=== PATIENT | female | born 1965 | race Hispanic/Latino ===

== ENCOUNTER 2016-12-05 16:15 | Observation (INO) | payer OTHER ==
[~2016-12-05] VITALS: Ht 157.5 cm; Wt 106.9 kg
[~2016-12-05 16:15] MED LIST: TOPI25TA26 PO
[2016-12-05 16:20] VITALS: BP 139/88; PULSE 71; RESP 16; O2SAT 97
--- NOTE | 2016-12-05 18:11 | ED.REPORT ---
HPI-Neurologic Deficit Date of Service Dec 05, 2016 ED Provider: Reinier Johnson DO Pt is a 51 y.o. Indonesian-speaking female who presents to the ED c/o gradually improving right arm numbness onset 1100. Pt states that she woke up today and her right arm and hand felt numb and tinging. She states that as the day has progressed the numbness has slowly improved and is now more localized to her forearm. She also reports associated weakness in her right hand. She denies neck or arm pain, headache, change in vision, or change in speech. She denies similar sx previously, she also denies a hx of CVA. Nursing Notes Stated Complaint: NUMBNESS OF RIGHT ARM Chief Complaint: Neuro Symptoms/ Deficits Nursing Notes Reviewed: Yes Allergies: Coded Allergies: No Known Drug Allergies (Verified Allergy, Unknown, 12/05/16) Scheduled Atorvastatin (Lipitor) 20 Mg Tablet 20 MG PO HS Metformin (Metformin) 500 Mg Tablet 500 MG PO BID Scheduled PRN Topiramate (Topamax) 25 Mg Tablet 25 MG PO BID PRN PRN Headache General Time Seen by Provider: 18:11 Chief Complaint Numbness arm... (Right) Hx Obtained From: Patient Arrived By: Walk-in Sudden in Onset?: Yes Onset Occurred: 5 - 8 hours ago Context of Onset: During sleep Symptom Duration: Since onset Progression Since Onset: Gradually improving Severity: Current: No pain currently Associated with: Reports: Altered sensation, Denies: Headache, Neck pain, Visual disturbance Recent Healthcare: No recent doctor visit, No recent hospitalization Similar Sx Previous: No Past Medical History Past Medical History None Past Surgical History Reports: , Cholecystectomy, Hysterectomy, Inguinal hernia repair Smoking History Never Smoker Social History Alcohol Use: Denies alcohol use Drug Use: Denies drug use Ambulatory Status Independent Review of Systems Musculoskeletal: Denies: Extremity pain, Neck pain Neurologic: Reports: Focal weakness (Right hand), Numbness (Right arm), Denies: Headache, Slurred speech, Vision change Complete sys rev & neg: except as marked. Physical Exam Initial Vital Signs Vital Signs (First) Date Time Temp Pulse Resp B/P Pulse Ox O2 Delivery O2 Flow Rate FiO2 12/05/16 16:20 36.5 71 16 139/88 97 Room Air Initial VS: Reviewed Abdomen / GI: No distention Extremities: Vascular intact, Neuro intact Skin: Warm, Dry, No cyanosis Psychiatric: Mood/affect normal, Behavior normal, Normal thought content General/Constitutional: Awake, Alert, No acute distress, Well appearing, Well developed, Well hydrated, Well nourished, Not toxic appearing Appearance / Presentation: Positive: Obese Head / Eyes: Atraumatic, Normocephalic, PERRL, EOMI Respiratory / Chest: Atraumatic, Breath sounds NL, No respiratory distress Cardiovascular: Heart rate NL, Regular rhythm, Cap refill not delayed, Peripheral circulation NL Neurologic: Oriented X3, Speech NL 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2% (40-74) Lymphocytes (%) (Auto) 41.1% (14-46) Monocytes (%) (Auto) 5.9% (4-12) Eosinophils (%) (Auto) 3.3% (0-5) Basophils (%) (Auto) 0.5% (0-3) Prothrombin Time 11.1sec (8.1-12.5) Prothromb Time International Ratio 1.04ratio Sodium Level 139mEq/L (134-144) Potassium Level 4.1mEq/L (3.5-5.2) Chloride Level 102mEq/L (97-108) Carbon Dioxide Level 27mmol/L (18-29) Blood Urea Nitrogen 14mg/dL (6-24) Creatinine 0.43mg/dL (0.57-1.00) Estimat Glomerular Filtration Rate 223mL/min (>59) Glucose Level 100mg/dL (60-99) Calcium Level 9.0mg/dL (8.5-10.1) Total Bilirubin 0.4mg/dL (0.0-1.2) Aspartate Amino Transf (AST/SGOT) 17U/L (0-50) Alanine Aminotransferase (ALT/SGPT) 14U/L (0-32) Alkaline Phosphatase 131U/L (25-150) Total Protein 6.8g/dL (6.4-8.4) Albumin 4.0g/dL (3.4-5.0) CT Head Interpretation IMPRESSION: No abnormality is found intracranially. Cause of right arm numbness and weakness is not identified. Dictated by: Parker Hay M.D. on 12/05/2016 at 19:32 Approved by: Parker Hay M.D. on 12/05/2016 at 19:35 Re-Eval/Medical Decision Source of Hx: Old records Re-Evaluation/Progress : Time of Eval: 18:28 Re-Evaluation/Progress Note: Discussed with pt need for labs and plan to admit for observation, pt understands and agrees with plan. Consultation : Referral / Consult Name: Sb Umaña MD Consulted With: Hospitalist Call Returned at: 19:50 Display Carver: Accepts admit Note: Discussed pt confition, accepts admit. Counseled Regarding: Diagnosis, Lab results, Need for follow-up, Need for admission Discharge & Departure Impression: Primary Impression: Arm paresthesia, right Additional Impression: Weakness of right arm Disposition: ADMITTED TO HOSPITAL Discharge Condition All VS Reviewed: Yes Condition: Stable Referrals: Pranay Cagle MD (PCP) Antelmo Attestation Portions of this note were transcribed by Ibis Sherwood. I, Dr. Johnson personally performed the history, physical exam and medical decision-making; I reviewed and confirmed the accuracy of the information in the transcribed note. Signed by : Antelmo Stringer, 12/05/16 and 4036. copies to: Pranay Cagle MD, Todd P DO Dec 05, 2016 18:11 IBIS SHERWOOD Dec 05, 2016 18:37
[2016-12-05 19:01] LABS: BASOPHILS % (AUTO) 0.5 % (0-3); EOSINOPHILS % (AUTO) 3.3 % (0-5); MONOCYTES % (AUTO) 5.9 % (4-12); Mean Corpuscular Volume 87.9 fL (81-100); NEUTROPHILS % (AUTO) 49.2 % (40-74); Platelet Count 195 bil/L (150-400)
[2016-12-05 19:09] LABS: INR 1.04 ratio
--- NOTE | 2016-12-05 19:36 | DRSVH ---
PROCEDURE: CT BRAIN WITHOUT CONTRAST ([id number]) INDICATIONS: right arm numb and weak TECHNIQUE: Noncontrast 4.5 mm thick angled axial sections acquired from the foramen magnum to the vertex, with c oronal reformats. COMPARISON: [facility], CT, BRAIN W/O CONTRAST, 02/22/2015, 10:08. FINDINGS: Image quality: Good CSF spaces: Basal cisterns are patent. No extra-axial fluid collections. Ventricles are normal in size and shape. Brain: No midline shift. No intracranial masses or hemorrhage. Hughes-white matter interface is norm al. Skull and face: Calvarium and visualized facial bones are intact, without suspicious lesions. Sinuses: Visualized sinuses and mastoids are clear. IMPRESSION: No abnormality is found intracranially. Cause of right arm numbness and weakness is not i dentified. Dictated by: Parker Hay M.D. on 12/05/2016 at 19:32 Approved by: Parker Hay M.D. on 12/05/2016 at 19:35
[2016-12-05] MEDS ORDERED: Polyethylene Glycol (PEG) 17 Gm Powder PO PRN (20:30)
[2016-12-05] MEDS ORDERED: Ondansetron 2 mg/mL 2 mL Inj IV PRN (20:30)
[2016-12-05] MEDS ORDERED: Alum-Mag Hydrox-Simeth 30 mL Suspension PO PRN (20:30)
[2016-12-05 21:12] VITALS: BP 136/81; PULSE 74; RESP 16; O2SAT 98
--- NOTE | 2016-12-05 21:21 | PCM.HPMED ---
Subjective Date of Service Dec 05, 2016 Primary Provider: Admitting Physician: Primary Care Physician: Pranay Cagle MD Attending Physician: Admit Status: From the Emergency Department, Remote Telemetry Chief Complaint: Right sided arm and hand numbness History of Present Illness: Patient is a 51 y.o. Taiwanese-speaking female with history significant for DM2, hyperlipidemia, and migraines, who presents to the ED c/o gradually improving right arm numbness onset 1100. 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 Associated symtpom of whole arm appearing pale. She states that as the day has progressed the numbness and weakness has slowly improved and is now more localized to her hand and fingers. She denies neck or arm pain, headache, change in vision, or change in speech. She denies similar sx previously, she also denies a hx of CVA. In ED, vitals stable and labs grossly within normal limits.CT head negative for any acute process. Patient admitted for further work up of her right sided numbness and weakness. Review of Systems: 11 point ROS reviewed and negative otherwise stated in HPI. Allergies Coded Allergies: No Known Drug Allergies (Verified Allergy, Unknown, 12/05/16) PMH DM2 Hyperlipidemia Migraines Varicose veins Obesity Surgical History Cholecystectomy Hysterectomy Inguinal hernia repair Family History Father with DM2 Mother with arrhythmia Social History Hx Alcohol Use: Yes (OCCAS) Hx Substance Use: No Hx Tobacco Use: No Smoking Status: Never Smoker Living Arrangement: with Family (in [place]) Exam Vital Signs Vital Sign - Last Date Time Temp Pulse Resp B/P Pulse Ox O2 Delivery O2 Flow Rate FiO2 12/05/16 16:20 36.5 71 16 139/88 97 Room Air Exam GEN: Alert and oriented, NAD, obese female HEENT: NC/AT, EOMI, PERRL, sclera anicteric, moist mucous membranes Neck: Supple with full ROM, trachea midline CV: RRR, normal S1, S2, no murmurs, rubs or gallops Lungs: CTAB MSK: 5/5 strength intact throughout upper and lower extremities Neuro: CN II-XII grossly intact, DTR and sensation intact throughout upper and lower extremities Skin: Warm, dry and intact. Varicosity on right lower leg Psych: normal mood and affect Lab and Diagnostics Result Diagram: 12/05/16183912/05/161839 X-Rays, CTs and MRIs Date of Service: 12/05/161826 PROCEDURE: CT BRAIN WITHOUT CONTRAST ([id number]) INDICATIONS: right arm numb and weak IMPRESSION: No abnormality is found intracranially. Cause of right arm numbness and weakness is not identified. Dictated by: Parker Hay M.D. on 12/05/2016 at 19:32 Assessment & Plan Patient is a 51 y.o. Taiwanese-speaking female with history significant for DM2, hyperlipidemia, and migraines, who presents to the ED c/o gradually improving right arm numbness onset 1100. Patient admitted for further work up and evaluation. New onset acute right upper extremity numbness and weakness, present on admission. Improving. - highly suspicious of poor circulation during the night due to history of awakening with pale and cold right arm, cannot rule out TIA/CVA due to patient having risk factors of DM2 and hyperlipidemia - CT head negative, patient out of window for TPA, no hypertension noted - stroke protocol ordered with swallow/OT/PT pending - MR brain and ECHO in am Chronic issues: Diabetes mellitus Type 2 - Metformin held - low correctional scale insulin protocol Hyperlipidemia - continue home dose statin once medications are reconciled GERD - continue home dose omeprazole in am once medications are reconciled Hx of migraines - Tylenol PRN Patient's medications to be verified in am. - Acetaminophen as needed for mild pain/fever/headache - Bowel regimen as needed - Antiemetic as needed Patient admitted under observation status with expected length of stay < 2 midnights. GI Prophylaxis: Proton Pump Inhibitor VTE Prophylaxis: Sub-Q Enoxaparin Resuscitation Status: CPR: Attempt Resuscitation Attending Statement The patient was seen and examined together with Dr. Martin on 12/05 and I agree with the history, exam and plan as outlined in the note above. Valentina Martin DO Dec 05, 2016 20:32 Sb Umaña MD Dec 05, 2016 22:05
[2016-12-05] MEDS ORDERED: Glucose 40% Oral Gel 15 Gm Tube PO PRN (21:25)
[2016-12-05 21:38] LABS: APPEARANCE,URINE CLEAR (CLEAR,HAZY); COLOR,URINE STRAW (YELLOW); OCCULT BLOOD,URINE NEGATIVE (NEGATIVE); UROBILINOGEN,URINE NORMAL (NORMAL)
[2016-12-05] MEDS ORDERED: TOPI25TA26 PO (21:57)
[2016-12-05] MEDS ORDERED: ATOR20TA PO (21:57)
[2016-12-05] MEDS ORDERED: METF500T4 PO (21:57)
[2016-12-05] MEDS: Insulin LISPRO 300 Unit/3 mL Inj SUBQ SCH (22:00)
--- NOTE | 2016-12-05 22:13 | NUR ---
admission admission completed. son translated. patient stated she "preferred her son to translate" report to neri rajan rn.
[2016-12-05 22:27] VITALS: BP 137/83; PULSE 75; RESP 18; O2SAT 98
[2016-12-06 00:04] VITALS: BP 150/84; PULSE 71; RESP 20; O2SAT 98
[2016-12-06 04:43] VITALS: BP 135/80; PULSE 67; RESP 20; O2SAT 98
[2016-12-06 05:04] VITALS: PULSE 67
[2016-12-06 06:02] LABS: Mean Corpuscular Hemoglobin 27.6 pg (27.0-35.0); Mean Corpuscular Volume 87.8 fL (81-100)
[2016-12-06 08:00] VITALS: PULSE 74
[2016-12-06] MEDS: Insulin LISPRO 300 Unit/3 mL Inj SUBQ SCH ×3 (08:00→16:53)
--- NOTE | 2016-12-06 08:47 | NUR ---
Social Work: Screening Data: Pt is a 51 y/o female admitted for right arm paresthesia and weakness. Pt's PCP is Dr Cagle, pt's insurance is [facility]. Readmit score is 0. EMR reviewed. No d/c planning needs anticipated at this time. 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 Assessment: Pt who is independent at baseline. Plan: Pt will d/c home via POV when medically stable. No d/c planning needs anticipated at this time. 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 SOFIA Morris
[2016-12-06 10:00] VITALS: BP 150/81; PULSE 90; RESP 18; O2SAT 98
--- NOTE | 2016-12-06 11:34 | NUR ---
Evaluation completed. Please go to "Notes" then click on "Assessments and Notes" (bottom left corner of screen). Then select appropriate discipline tab on top of screen.
--- NOTE | 2016-12-06 12:04 | DRSVH ---
[facility] [address] [place] [address] Echocardiogram Report Name: RANDELL AGUILAR YStudy Date: Height: 62 in Hospital Exam Location: [facility] Weight: 236 lb Gender: Female BSA: 2.1 m2 : 1965 Age: 51 yrs BP: 135/ 80 mmHg Reason For Study: Stroke follow up Ordering Physician: HOSPITALIST [facility] Performed By: Vani Arreguin Referring Physician: Dr. Pranay Cagle Interpretation Summary The left ventricle is normal in size. The ejection fraction is estimated to be 65-70%. There is no LV thrombus. The right ventricle is normal in size and function. The interatrial septum is intact with no evidence for an atrial septal defect. Injection of contrast documented no interatrial shunt. There is mild tricuspid regurgitation. The right ventricular systolic pressure is estimated at 24 mmHg assuming a right atrial pressure of 3 mm Hg. Procedure: A two-dimensional transthoracic echocardiogram with color flow and Doppler was performed. The study quality was technically adequate. Suboptimal subcostal acoustic windows. A saline contrast injection was performed to assess for cardiac shunting. The injection was performed through an intravenous line in the left arm. There is no prior echocardiogram noted for this patient. The patient was in normal sinus rhythm during the exam. Left Ventricle: The left ventricle is normal in size. There is normal left ventricular wall thickness. There is no thrombus. Left ventricular systolic function is normal. The ejection fraction is estimated to be 65-70%. There are no focal wall motion abnormalities. Spectral Doppler of the mitral valve shows a normal E/A wave ratio. Right Ventricle: The right ventricle is normal in size and function. Atria: The left atrium is mildly dilated. The right atrium is mildly dilated. The interatrial septum is intact with no evidence for an atrial septal defect. Injection of contrast documented no interatrial shunt. Mitral Valve: The mitral valve leaflets appear borderline thickened, but open well. There is mild mitral annular calcification. There is no mitral stenosis. There is trace mitral regurgitation. Aortic Valve: The aortic valve is normal in structure and function. The aortic valve is trileaflet. There is no aortic valve stenosis. No aortic regurgitation is present. Tricuspid Valve: The tricuspid valve is normal in structure and function. There is mild tricuspid regurgitation. The right ventricular systolic pressure is estimated at 24 mmHg assuming a right atrial pressure of 3 mm Hg. Pulmonic Valve: The pulmonic valve is normal in structure and function. There is trace pulmonic regurgitation. Great Vessels: The aortic root is normal size. The dimensions of the ascending aorta are normal. The pulmonary artery is normal size. The IVC is of normal diameter and collapses greater than 50% with a sniff. This suggests a low right atrial pressure of 3 mm Hg. Pericardium/ Pleura There is no pericardial effusion. There is no pleural effusion. MMode/2D Measurements & Calculations LVIDd: 4.3 cm LA dimension: 3.9 cm RA long axis LVOT diam: 2.0 cm LVIDs: 2.3 cm AoV Opening FS: 47.6 % LA A2 area: 24.6 cm RA area EPSS: 0.65 cm LA A4 area: 22.0 cm Ao root diam IVSd: 1.0 cm LA length (vol) : 16.9 cm LVPWd: 0.88 cm RA vol Aortic Jxn: 2.3 cm LA vol: 85.1 ml : 48.7 ml asc Aorta Diam LA vol index RA : 23.8 mm2 Ao Arch Diam (Prox Trans): 2.6 cm IVC diam: 1.4 cm LV do. diameter/BSA LV sys. diameter/BSA (cm/m^2): 2.1 (cm/m^2): 1.1 Doppler Measurements & Calculations Ao V2 max MV E max luis miguel MV E/A: 1.5 TR max luis miguel : 175.8 cm/sec : 106.1 cm/sec Med Peak E' Luis Miguel : 228.8 cm/sec Ao max P.4 mmHg MV A max luis miguel TR max PG Ao mean P.4 mmHg : 70.4 cm/sec E/E' med: 13.9 : 20.9 mmHg LVOT Max Luis Miguel Lat Peak E' Luis Miguel PA V2 max : 115.8 cm/sec : 90.2 cm/sec E/E' lat: 9.3 PA mean PG BOOGIE(I,D): 2.0 cm E/e' average sev ratio: 0.67 PA Accel Time Pulm A Revs Dur : 0.10 sec MV A dur : 0.14 sec MV dec time: 0.22 secAo V2 mean LV V1 max PG PA V2 mean : 119.6 cm/sec : 65.4 cm/sec Ao V2 VTI: 37.1 cm LV V1 VTI PA pr(Accel) : 24.7 cm : 34.1 mmHg BOOGIE(V,D): 2.0 cm2 BOOGIE indexed to BSA Pulm A Revs Dur - MV (cm^2/m^2): 0.98 A Dur: -0.03 msec Reading Physician:WENDIE
--- NOTE | 2016-12-06 13:08 | DRSVH ---
PROCEDURE: MRI BRAIN WITHOUT CONTRAST ([id number]) INDICATIONS: possible stroke TECHNIQUE: Noncontrast axial T1 spin echo, axial T2 fast spin echo, sagittal and axial FLAIR, coronal T2 fast sp in echo, axial gradient echo, axial diffusion and ADC through the brain. COMPARISON: None. FINDINGS: Image quality: Excellent. CSF Spaces: Basal cisterns are patent. No extra-axial fluid collections. Ventricles are normal in size and shape. Brain: No intracranial masses or hemorrhage. Hughes/white matter interface is normal. Brainstem appe ars normal. Diffusion-weighted images demonstrate no acute ischemic insult. No chronic ischemic ins ults. Normal intravascular flow voids are present. Skull and face: Calvarium has normal marrow signal. Orbits appear normal. Sinuses: Sinuses and mastoids are clear. IMPRESSION: 1. No acute intracranial disease process. 2. No areas of acute or chronic infarction. 3. No intracranial hemorrhage. Dictated by: Leda Higgins MD, PhD on 12/06/2016 at 13:04 Approved by: Leda Higgins MD, PhD on 12/06/2016 at 13:06
[2016-12-06 13:46] VITALS: BP 120/79; PULSE 78; RESP 19; O2SAT 96
--- NOTE | 2016-12-06 15:11 | PCM.DIMED ---
Discharge Instructions Date of Service Dec 06, 2016 Dates of Hospitalization Dec 05, 2016 at 21:07 Discharge Diagnosis Discharge Diagnosis Right sided hand numbness and decreased strength, likely cervical radiculopathy Diet Heart Healthy, Diabetic Activity No restrictions Patient Instructions You were hospitalized with symptoms concerning for stroke. All of work-ups suggested that this is unlikely stroke. Please control your sugar, cholesterol to prevent future stroke Please follow up with your primary doctor and possibly neurologist to get your neck images if symptoms continue Follow-up plan Please see your doctor in 2weeks Follow-up Provider: Pranay Cagle MD Follow-up with PCP in: 2 weeks Trniy Deleon MD Dec 06, 2016 15:11
[2016-12-06] MEDS ORDERED: PREG50CA PO (15:34)
--- NOTE | 2016-12-06 15:59 | NUR ---
Social Work: Discharge Data: Pt is on day 1 of hospitalization. EMR reviewed. D/C orders are in. No d/c planning needs identified at this time. 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 Assessment: Pt who is independent at baseline. Plan: Pt will d/c home via POV today. No d/c planning needs identified at this time. 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 SOFIA Morris
--- NOTE | 2016-12-06 19:25 | NUR ---
discharge ORders to discharge pt to home. IV d/c'd intact. Reviewed discharge instructions and medications with pt, verbalized understanding via educational interpreter. Care notes provided on TIA, stroke booklet and lyrica. Rx for lyrica given to pt. Pt to f/u with Dr. Cagle in 2 weeks, instructed to call for appt. 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 Discharged at 1840.
--- NOTE | 2016-12-08 12:05 | PCM.DC.MED ---
Discharge Summary Date of Service Dec 06, 2016 Dates of Hospitalization Date of Hospital Admission Dec 05, 2016 at 21:07 Date of Discharge: Dec 06, 2016 Providers: Admitting Physician: Sb Umaña MD Primary Care Physician: Pranay Cagle MD Attending Physician: Sb Umaña MD Diagnosis at Time of Discharge Diagnosis at Time of Discharge Right sided hand numbness and decreased strength, likely cervical radiculopathy Diabetes mellitus Type 2 Hyperlipidemia GERD Hx of migraines Procedures XRay, CTs & MRIs Date of Service: 12/05/161826 PROCEDURE: CT BRAIN WITHOUT CONTRAST ([id number]) INDICATIONS: right arm numb and weak IMPRESSION: No abnormality is found intracranially. Cause of right arm numbness and weakness is not identified. Dictated by: Parker Hay M.D. on 12/05/2016 at 19:32 PROCEDURE: MRI BRAIN WITHOUT CONTRAST ([id number]) INDICATIONS: possible stroke TECHNIQUE: Noncontrast axial T1 spin echo, axial T2 fast spin echo, sagittal and axial FLAIR, coronal T2 fast spin echo, axial gradient echo, axial diffusion and ADC through the brain. COMPARISON: None. FINDINGS: Image quality: Excellent. CSF Spaces: Basal cisterns are patent. No extra-axial fluid collections. Ventricles are normal in size and shape. Brain: No intracranial masses or hemorrhage. Hughes/white matter interface is normal. Brainstem appears normal. Diffusion-weighted images demonstrate no acute ischemic insult. No chronic ischemic insults. Normal intravascular flow voids are present. Skull and face: Calvarium has normal marrow signal. Orbits appear normal. Sinuses: Sinuses and mastoids are clear. IMPRESSION: 1. No acute intracranial disease process. 2. No areas of acute or chronic infarction. 3. No intracranial hemorrhage. Dictated by: Leda Higgins MD, PhD on 12/06/2016 at 13:04 Approved by: Leda Higgins MD, PhD on 12/06/2016 at 13:06 Brief History History and physical obtained by Patient is a 51 y.o. [place]iny[place]-speaking female with history significant for DM2, hyperlipidemia, and migraines, who presents to the ED c/o gradually improving right arm numbness onset 1100. 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 Associated symtpom of whole arm appearing pale. She states that as the day has progressed the numbness and weakness has slowly improved and is now more localized to her hand and fingers. She denies neck or arm pain, headache, change in vision, or change in speech. She denies similar sx previously, she also denies a hx of CVA. In ED, vitals stable and labs grossly within normal limits.CT head negative for any acute process. Patient admitted for further work up of her right sided numbness and weakness. Hospital Course Patient is a 51 y.o. [place]iny[place]-speaking female with history significant for DM2, hyperlipidemia, and migraines, who presents to the ED c/o gradually improving right arm numbness onset 1100. Patient admitted for further work up and evaluation. New onset acute right upper extremity numbness and weakness,initially it was concern for vascular episodes or TIA/CVA. However, CTH was negative. MRI of brain didn't show any signs of stroke. Numbness of Rt hand was continued, neuro exam was unremarkable, no focal deficit. pt also didn't show any signs of acute arterial obstruction, motor strength remained intact on bilateral hands. Although MRA or MRI of neck were unfortunately not obtained, it was thought to be more neuropathic pain, likely cervical radiculopathy. CTS was unlikely given sx above the wrist. Plan is to start Lyrica 50mg tid, follow up with primary care and Neurology as well for further workups such as NCS/EMG, MRA/MRI of neck. pt was asked to come back if symptoms progress. Diabetes mellitus Type 2, Metformin held, low correctional scale insulin protocol Hyperlipidemia, continued statin. GERD, continued home dose omeprazole Hx of migraines, not active Exam Vital Signs (Last) Date Time Temp Pulse Resp B/P Pulse Ox O2 Delivery O2 Flow Rate FiO2 12/06/16 13:46 36.8 78 19 120/79 96 Room Air Exam NAD Rt hand Rt hand stretcher and drier intact, bulk/tone symmetric pulses 2/2 bilateral radial/ulnar no discolored fingers. neck FROM, no ttp on cervical spines. neuro exam- CN2-12 intact, FTN WNL, normal gait, Romberg negative. no pronator drift RRR, nl S1 s2 no mrg S,ND,NT,BS+ warm, no edema Test 1/26/17 18:25 12/05/16 18:40 12/05/16 21:16 12/06/16 05:30 Hold Rodriguez Top Tube Received (Received) Neutrophils (%) (Auto) 49.2% (40-74) Lymphocytes (%) (Auto) 41.1% (14-46) Monocytes (%) (Auto) 5.9% (4-12) Eosinophils (%) (Auto) 3.3% (0-5) Basophils (%) (Auto) 0.5% (0-3) Prothrombin Time 11.1sec (8.1-12.5) Prothromb Time International Ratio 1.04ratio Hemoglobin A1c 6.2% (4.8-5.6) Total Bilirubin 0.4mg/dL (0.0-1.2) Aspartate Amino Transf (AST/SGOT) 17U/L (0-50) Alanine Aminotransferase (ALT/SGPT) 14U/L (0-32) Alkaline Phosphatase 131U/L (25-150) Total Protein 6.8g/dL (6.4-8.4) Albumin 4.0g/dL (3.4-5.0) Urine Color Straw (YELLOW) Urine Appearance Clear (CLEAR,HAZY) Urine pH 6.0 (5.0-8.0) Urine Specific Randolph <1.005 (1.003-1.035) Urine Protein Negativemg/dL (NEG,TRACE) Urine Glucose (UA) Negativemg/dL (NEGATIVE) Urine Ketones Negativemg/dL (NEGATIVE) Urine Occult Blood Negative (NEGATIVE) Urine Nitrite Negative (NEGATIVE) Urine Bilirubin Negative (NEGATIVE) Urine Urobilinogen Normalmg/dL (NORMAL) Urine Leukocyte Esterase Negative (NEGATIVE) Urine RBC 0-2/hpf (0-2) Urine WBC 0-5/hpf (0-5) Urine Epithelial Cells Occasional/hpf (NONE-MOD) Urine Crystals None seen (NONE SEEN) Urine Bacteria None/hpf (NONE-FEW) Urine Hyaline Casts None/lpf (NONE) Urine Granular Casts None seen (NONE SEEN) Urine Waxy Casts None seen (NONE SEEN) Urine Red Blood Cell Casts None seen (NONE SEEN) Urine White Blood Cell Casts None seen (NONE SEEN) Urine Mucus None seen (None Seen) Urine Trichomonas None seen (NONE SEEN) Urine Yeast None (NONE SEEN) Urinalysis Comment None Urine Culture Reflexed Not indicated White Blood Count 6.5th/mm3 (3.8-10.1) Red Blood Count 4.27mil/mm3 (3.90-5.20) Hemoglobin 11.8g/dL (12.0-15.6) Hematocrit 37.5% (35.0-46.0) Mean Corpuscular Volume 87.8fL (81-100) Mean Corpuscular Hemoglobin 27.6pg (27.0-35.0) Mean Corpuscular Hemoglobin Concent 31.5% (32.0-37.0) Red Cell Distribution Width 14.0% (12.3-15.4) Platelet Count 197bil/L (150-400) Sodium Level 142mEq/L (134-144) Potassium Level 4.3mEq/L (3.5-5.2) Chloride Level 105mEq/L (97-108) Carbon Dioxide Level 25mmol/L (18-29) Blood Urea Nitrogen 12mg/dL (6-24) Creatinine 0.54mg/dL (0.57-1.00) Estimat Glomerular Filtration Rate 171mL/min (>59) Glucose Level 109mg/dL (60-99) Calcium Level 9.2mg/dL (8.5-10.1) Triglycerides Level 115mg/dL (0-149) Cholesterol Level 199mg/dL (100-199) LDL Cholesterol, Calculated 126.000mg/dL (0-99) VLDL Cholesterol 23.000mg/dL HDL Cholesterol 50mg/dL (>39) Cholesterol/HDL Ratio 3.98 (0.0-4.4) Discharge Medications Discharge Medications Atorvastatin (Lipitor) 20 Mg Tablet 20 MG PO HS (Reported) Metformin (Metformin) 500 Mg Tablet 500 MG PO BID (Reported) Pregabalin (Lyrica) 50 Mg Capsule 50 MG PO TID Prescribed by: TRINY GAONA MD As needed Topiramate (Topamax) 25 Mg Tablet 25 MG PO BID PRN PRN Headache (Reported) Followup Plan Disposition: home Follow-up plan Please see your doctor in 2weeks Discharge Diet: Heart Healthy, Diabetic Discharge Activity: No restrictions Patient Instructions You were hospitalized with symptoms concerning for stroke. All of work-ups suggested that this is unlikely stroke. Please control your sugar, cholesterol to prevent future stroke Please follow up with your primary doctor and possibly neurologist to get your neck images if symptoms continue Follow-up Provider: Pranay Cagle MD Follow-up with PCP in: 2 weeks Time spent 65min Triny Gaona MD Dec 08, 2016 11:57
== END 2016-12-06 18:40 | disposition home or self-care (01) ==
LOC: SED 16:15 → MPC 21:07
PROVIDERS: ADMIT Hospitalist; ATTEND Hospitalist
DX: R20.0 Anesthesia of skin (principal); R53.1 Weakness; E11.9 Type 2 diabetes mellitus without complications; Z79.84 Long term (current) use of oral hypoglycemic drugs; E78.5 Hyperlipidemia, unspecified; K21.9 Gastro-esophageal reflux disease without esophagitis; G43.909 Migraine, unspecified, not intractable, without status migrainosus; E66.9 Obesity, unspecified; Z68.41 Body mass index [BMI] 40.0-44.9, adult
CPT/HCPCS: 36415; 70450; 70551; 80048; 80053; 80061; 81000; 83036; 85025; 85027; 85610; 92610; 93005; 99285; C8929; G0378; J1650; J1815